=== PATIENT | male | born 1990 | race Two or more races ===

== ENCOUNTER 2019-08-31 01:18 | Emergency (ER) | payer SELFPAY ==
[~2019-08-31] VITALS: Ht 180.3 cm; Wt 77.1 kg
[2019-08-31 01:20] VITALS: BP 117/76
--- NOTE | 2019-08-31 01:20 | NUR ---
ED Nurse Note: PT BROUGHT IN BY HALEIGH Zimmerman FROM [place] D/T [facility]. PT WAS FOUND BY EMS ON THE STREET. PT IS NONVERBAL, AROUSABLE BY PAIN, MAKES VOLUNTARY MOVEMENTS. ERMD AT BEDSIDE, AAOX2, ON [employer]. VSS, NAD.
--- NOTE | 2019-08-31 01:29 | Emergency Room Report ---
History of Present Illness General Chief Complaint: Altered Level of Consciousness Source: EMS Present Illness HPI This is an approximately 29-year-old male who came as a Michael Grosse. He presents with chief complaint of altered mental status. He was found in the parking lot of a [address]. He was not responsive. There is no evidence of any trauma. Unable to get any history from this patient because of his altered mental status. 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 Patient History Past Medical History: see triage record, old chart reviewed, unable to obtain Past Surgical History: unable to obtain Pertinent Family History: unable to obtain Social History: Denies: alcohol use Nursing Documentation-[facility] Past Medical History: Deferred Review of Systems All Other Systems: limited - Secondary to mental status Physical Exam Vital Signs Date Time Temp Pulse Resp B/P (MAP) Pulse Ox O2 Delivery O2 Flow Rate FiO2 08/31/19 01:18 98.6 73 16 117/76 (90) 98 Room Air Vitals normal Sp02 EP Interpretation: reviewed, normal General Appearance: well appearing, no apparent distress, lethargic Head: normocephalic, atraumatic Eyes: bilateral eye PERRL, bilateral eye EOMI ENT: normal pharynx Neck: full range of motion, supple, no meningismus Respiratory: chest non-tender, lungs clear, normal breath sounds Cardiovascular #1: regular rate, rhythm, no murmur Gastrointestinal: normal bowel sounds, non tender, no mass, no organomegaly, no bruit, non-distended Musculoskeletal: back normal, normal range of motion Neurologic: no focal defects Psychiatric: mood/affect normal Medical Decision Making Diagnostic Impression: Primary Impression: Altered level of consciousness Additional Impression: Methamphetamine abuse ER Course Patient with an altered mental status. I suspect is a psychiatric component. Patient initially displayed here without responding. When the nurse asked him to go give a urine sample he walked to the bathroom without any problem. Last Vital Signs Date Time Temp Pulse Resp B/P (MAP) Pulse Ox O2 Delivery O2 Flow Rate FiO2 08/31/19 01:18 98.6 73 16 117/76 (90) 98 Room Air Status: improved Disposition: HOME, SELF-CARE Condition: Stable Additional Instructions: Abstain from using drugs. Follow-up your doctor in 7 days. Go to mental health. Return if worse. Cecil Lantigua MD Aug 31, 2019 01:29
--- NOTE | 2019-08-31 01:30 | NUR ---
ED Nurse Note: BLOOD AND URINE COLLECTED AND SENT [facility]
[2019-08-31 03:15] VITALS: BP 119/77
[2019-08-31 05:00] VITALS: BP 112/68
--- NOTE | 2019-08-31 05:00 | NUR ---
ED Nurse Note: pt non-compliant, will not provide name, or social security number. pt ignores questioning and attempts to get pt up although his eyes are open and VSS. pt provided with weather appropriate clothing and food, still refusing to wake answer questions, sitting awake in bed
[2019-08-31 05:25] VITALS: BP 119/77
--- NOTE | 2019-08-31 05:25 | NUR ---
Homeless Discharge: Patient is being discharged from medical care. Awake, alert and mentating at baseline. After care instructions, including referral to community resources were given but pt did not take paperwork with him, refused to sign d/x paperwork. Patient verbalized understanding of After care instructions; at this time patient does not request medications, equipment or placement. Patient refused to disclose any information including destination upon discharge. All medical devices such as IV and ID band were removed. Patient ambulated out with all personal belongings with steady gait.
== END 2019-08-31 05:25 | disposition home or self-care (01) ==
LOC: EDBD 01:18 → EMR 01:32
DX: F15.10 Other stimulant abuse, uncomplicated (principal)
CPT/HCPCS: 36415; 80307; 99283; G0480